=== PATIENT | female | born 1950 | race Caucasian/White ===

== ENCOUNTER 2017-05-25 12:57 | Emergency (ER) | payer OTHER ==
[2017-05-25] MEDS: ONDANSETRON 4 MG INJ IV (13:31)
[2017-05-25 13:45] LABS: ADD MAN DIFF? NO
[2017-05-25 13:50] LABS: WHITE BLOOD COUNT 7.7 10^3/ul (4.8-10.8)
[2017-05-25 13:50] LABS: BASOPHILS % 0.3 % (0.0-2.0); EOSINOPHILS # 0.1 10^3/ul (0.0-0.5); EOSINOPHILS % 1.7 % (0.0-7.0); HEMATOCRIT 35.4 % (37.0-47.0); HEMOGLOBIN 11.4 g/dl (12.0-16.0); LYMPHOCYTES # 1.5 10^3/ul (0.8-2.9); LYMPHOCYTES % 18.9 % (15.0-51.0); MEAN CORPUSCULAR HEMOGLOBIN 30.2 pg (29.0-33.0); MEAN CORPUSCULAR HGB CONC 32.2 g/dl (32.0-37.0); MEAN CORPUSCULAR VOLUME 93.9 fl (82.0-101.0); MEAN PLATELET VOLUME 11.4 fl (7.4-10.4); MONOCYTE # 0.3 10^3/ul (0.3-0.9); MONOCYTES % 3.9 % (0.0-11.0); NEUTROPHIL # 5.8 10^3/ul (1.6-7.5); NEUTROPHILS % 74.9 % (39.0-77.0); PLATELET COUNT 163 10^3/UL (140-415); RED BLOOD COUNT 3.77 10^6/ul (4.20-5.40); RED CELL DISTRIBUTION WIDTH 13.9 % (11.5-14.5)
[2017-05-25] MEDS: morphine 4 MG/ML VIAL IV (13:59)
[2017-05-25 14:06] LABS: INR 0.96; PROTIME 12.9 Sec (11.9-14.9)
[2017-05-25 14:07] LABS: PARTIAL THROMBOPLASTIN TIME 29.9 Sec (25.0-35.0)
[2017-05-25 14:10] LABS: ALANINE AMINOTRANSFERASE 37 IU/L (13-69); ALBUMIN 4.3 g/dl (3.3-4.9); ALBUMIN/GLOBULIN RATIO 1.07; ALKALINE PHOSPHATASE 94 IU/L (42-121); ANION GAP 15 (8-16); ASPARTATE AMINO TRANSFERASE 25 IU/L (15-46); BILIRUBIN,INDIRECT 0.3 mg/dl (0-1.1); BILIRUBIN,TOTAL 0.3 mg/dl (0.2-1.3); BLOOD UREA NITROGEN 25 mg/dl (7-20); CALCIUM 9.1 mg/dl (8.4-10.2); CARBON DIOXIDE 24 mmol/L (21-31); CHLORIDE 112 mmol/L (97-110); CREATININE 1.08 mg/dl (0.44-1.00); GLUCOSE 136 mg/dl (70-220); POTASSIUM 4.5 mmol/L (3.5-5.1); SODIUM 146 mmol/L (135-144); TOTAL PROTEIN 8.3 g/dl (6.1-8.1)
[2017-05-25 14:10] LABS: LACTIC ACID 0.8 mmol/L (0.5-2.0)
[2017-05-25 14:23] LABS: TROPONIN-I < 0.012 ng/ml (0.00-0.12)
[2017-05-25 15:41] LABS: LACTIC ACID 1.1 mmol/L (0.5-2.0)
== END 2017-05-25 15:59 | disposition home or self-care (01) ==
LOC: E/R 12:57
DX: R55 Syncope and collapse (principal); E11.649 Type 2 diabetes mellitus with hypoglycemia without coma; I10 Essential (primary) hypertension; Z79.4 Long term (current) use of insulin
CPT/HCPCS: 36415; 71045; 73550; 80053; 82962; 83605; 84484; 85025; 85610; 85730; 87040; 93005; 96374; 96375; 99285-25

== ENCOUNTER 2017-05-26 19:32 | Inpatient (IN) | payer OTHER ==
[2017-05-26 20:32] LABS: ADD MAN DIFF? NO
[2017-05-26 20:34] LABS: BASOPHILS % 0.3 % (0.0-2.0); EOSINOPHILS # 0.4 10^3/ul (0.0-0.5); HEMATOCRIT 30.1 % (37.0-47.0); HEMOGLOBIN 9.7 g/dl (12.0-16.0); LYMPHOCYTES # 2.5 10^3/ul (0.8-2.9); LYMPHOCYTES % 31.3 % (15.0-51.0); MEAN CORPUSCULAR HEMOGLOBIN 30.4 pg (29.0-33.0); MEAN CORPUSCULAR HGB CONC 32.2 g/dl (32.0-37.0); MEAN CORPUSCULAR VOLUME 94.4 fl (82.0-101.0); MEAN PLATELET VOLUME 11.4 fl (7.4-10.4); MONOCYTE # 0.5 10^3/ul (0.3-0.9); NEUTROPHIL # 4.5 10^3/ul (1.6-7.5); PLATELET COUNT 145 10^3/UL (140-415); RED BLOOD COUNT 3.19 10^6/ul (4.20-5.40); RED CELL DISTRIBUTION WIDTH 13.8 % (11.5-14.5)
[2017-05-26 20:34] LABS: WHITE BLOOD COUNT 7.8 10^3/ul (4.8-10.8)
[2017-05-26] MEDS: PIPER-TAZO 3.375 GM IV (PMX) 100 ML IVPB (20:36)
[2017-05-26] MEDS: SOD CHLORIDE 0.9% 1,000 ML IV ×2 (20:36→23:17)
[2017-05-26 20:53] LABS: ALANINE AMINOTRANSFERASE 31 IU/L (13-69); ALBUMIN 3.7 g/dl (3.3-4.9); ALBUMIN/GLOBULIN RATIO 1.08; ALKALINE PHOSPHATASE 89 IU/L (42-121); ANION GAP 13 (8-16); ASPARTATE AMINO TRANSFERASE 20 IU/L (15-46); BILIRUBIN,INDIRECT 0.1 mg/dl (0-1.1); BILIRUBIN,TOTAL 0.1 mg/dl (0.2-1.3); BLOOD UREA NITROGEN 37 mg/dl (7-20); CALCIUM 8.4 mg/dl (8.4-10.2); CARBON DIOXIDE 23 mmol/L (21-31); CHLORIDE 112 mmol/L (97-110); CREATININE 1.78 mg/dl (0.44-1.00); GLUCOSE 191 mg/dl (70-220); SODIUM 143 mmol/L (135-144); TOTAL PROTEIN 7.1 g/dl (6.1-8.1)
[2017-05-26 21:04] LABS: POTASSIUM 5.2 mmol/L (3.5-5.1)
[2017-05-26 21:10] LABS: INR 1.04; PROTIME 13.7 Sec (11.9-14.9); PT RATIO 1.1
[2017-05-26] MEDS: VANCOMYCIN 1.25 GM in SOD CHLORIDE 0.9% 250 ML IVPB (21:10)
[2017-05-26 21:11] LABS: PARTIAL THROMBOPLASTIN TIME 27.1 Sec (25.0-35.0)
[2017-05-26 21:12] LABS: LACTIC ACID 1.1 mmol/L (0.5-2.0)
[2017-05-26 21:27] LABS: TROPONIN-I < 0.012 ng/ml (0.00-0.12)
[2017-05-26] MEDS: morphine 4 MG/ML VIAL IV (21:36)
[2017-05-26] MEDS: KETOROLAC 30 MG INJ IV (21:37)
[2017-05-26] MEDS: METHOCARBAMOL 750 MG TAB PO (22:13)
[2017-05-26] MEDS ORDERED: ONDANSETRON 4 MG INJ IV (23:00)
[2017-05-26] MEDS ORDERED: NACL 0.9% 3 ML SYG IV (23:00)
[2017-05-26] MEDS ORDERED: morphine 2 MG INJ IV (23:30)
[2017-05-26] MEDS ORDERED: GLUCOSE GEL 15 GRAM TUBE BUCCAL (23:30)
[2017-05-26] MEDS ORDERED: GLUCOSE GEL 15 GRAM TUBE PO ×2 (23:30)
[2017-05-26] MEDS ORDERED: DEXTROSE 50% 50 ML SYRINGE IV ×2 (23:30)
[2017-05-26] MEDS ORDERED: MECLIZINE 25 MG TAB PO (23:30)
[2017-05-26] MEDS ORDERED: GLUCAGON 1 MG INJ IM (23:30)
[2017-05-27] MEDS ORDERED: VANCOMYCIN IV PER PHARMACY XX
[2017-05-27] MEDS: SOD CHLORIDE 0.9% 1,000 ML IV ×2 (01:09→05:21)
[2017-05-27] MEDS: ACCU-CHEK XX (01:16)
[2017-05-27] MEDS: INSULIN ASPART [NOVOLOG] 3 ML PEN SC ×8 (01:16→22:14)
[2017-05-27] MEDS: PANTOPRAZOLE (EC) 40 MG TAB PO (05:21)
[2017-05-27] MEDS: HEPARIN 5,000 UNIT/0.5 ML VIAL SC ×3 (05:32→22:16)
[2017-05-27 06:10] LABS: ADD MAN DIFF? NO
[2017-05-27 06:18] LABS: BASOPHILS % 0.2 % (0.0-2.0); EOSINOPHILS # 0.3 10^3/ul (0.0-0.5); EOSINOPHILS % 5.7 % (0.0-7.0); HEMATOCRIT 25.5 % (37.0-47.0); HEMOGLOBIN 8.1 g/dl (12.0-16.0); LYMPHOCYTES # 2.7 10^3/ul (0.8-2.9); LYMPHOCYTES % 44.6 % (15.0-51.0); MEAN CORPUSCULAR HEMOGLOBIN 30.6 pg (29.0-33.0); MEAN CORPUSCULAR HGB CONC 31.8 g/dl (32.0-37.0); MEAN CORPUSCULAR VOLUME 96.2 fl (82.0-101.0); MONOCYTE # 0.4 10^3/ul (0.3-0.9); MONOCYTES % 6.5 % (0.0-11.0); NEUTROPHIL # 2.6 10^3/ul (1.6-7.5); NEUTROPHILS % 42.7 % (39.0-77.0); PLATELET COUNT 115 10^3/UL (140-415); RED BLOOD COUNT 2.65 10^6/ul (4.20-5.40); RED CELL DISTRIBUTION WIDTH 13.8 % (11.5-14.5)
[2017-05-27 06:45] LABS: ANION GAP 12 (8-16); BLOOD UREA NITROGEN 35 mg/dl (7-20); CALCIUM 7.5 mg/dl (8.4-10.2); CARBON DIOXIDE 22 mmol/L (21-31); CHLORIDE 116 mmol/L (97-110); CREATININE 1.52 mg/dl (0.44-1.00); GLUCOSE 143 mg/dl (70-220); SODIUM 145 mmol/L (135-144)
[2017-05-27] MEDS: FERROUS SULFATE (EC) 325 MG TAB PO (09:00)
[2017-05-27] MEDS: CLOPIDOGREL 75 MG TAB PO (09:00)
[2017-05-27] MEDS: NIFEdipine (XL) 30 MG TAB PO (09:00)
[2017-05-27] MEDS ORDERED: PREGABALIN 75 MG CAP PO (09:00)
[2017-05-27] MEDS: LACTATED RINGER'S 1,000 ML IV ×2 (10:43→19:30)
[2017-05-27 17:49] LABS: ADD UMIC NO; UR ASCORBIC ACID NEGATIVE (NEGATIVE); UR BILIRUBIN (Dip) NEGATIVE (NEGATIVE); UR BLOOD (Dip) NEGATIVE (NEGATIVE); UR CLARITY CLEAR (CLEAR); UR COLOR STRAW (YELLOW); UR GLUCOSE (Dip) 1+ mg/dL (NEGATIVE); UR KETONES (Dip) NEGATIVE (NEGATIVE); UR LEUKOCYTE ESTERASE (Dip) NEGATIVE Leu/ul (NEGATIVE); UR NITRITE (Dip) NEGATIVE (NEGATIVE); UR SPECIFIC GRAVITY (Dip) 1.008 (1.003-1.030); UR TOTAL PROTEIN (Dip) NEGATIVE (NEGATIVE); UR UROBILINOGEN (Dip) NEGATIVE (NEGATIVE)
[2017-05-27] MEDS: ACETAMINOPHEN 325 MG TAB PO (17:58)
[2017-05-27] MEDS: VANCOMYCIN 1.5 GM in SOD CHLORIDE 0.9% 250 ML IVPB (20:55)
[2017-05-27] MEDS: ATORVASTATIN 40 MG TAB PO (20:55)
[2017-05-27] MEDS: FAMOTIDINE 20 MG TAB GTB (20:56)
[2017-05-27] MEDS ORDERED: VANCOMYCIN 1.75 GM in SOD CHLORIDE 0.9% 500 ML IVPB (21:00)
[2017-05-27] MEDS ORDERED: INSULIN GLARGINE [LANtus] 3 ML PEN SC (21:00)
[2017-05-27] MEDS: INSULIN GLARGINE [LANtus] 3 ML PEN SC (22:15)
[2017-05-28] MEDS: ACCU-CHEK XX (02:00)
[2017-05-28] MEDS: LACTATED RINGER'S 1,000 ML IV (02:19)
[2017-05-28] MEDS: HEPARIN 5,000 UNIT/0.5 ML VIAL SC (06:15)
[2017-05-28 06:48] LABS: ANION GAP 13 (8-16); BLOOD UREA NITROGEN 24 mg/dl (7-20); CALCIUM 7.9 mg/dl (8.4-10.2); CARBON DIOXIDE 22 mmol/L (21-31); CHLORIDE 116 mmol/L (97-110); CREATININE 1.01 mg/dl (0.44-1.00); GLUCOSE 152 mg/dl (70-220); POTASSIUM 4.7 mmol/L (3.5-5.1); SODIUM 146 mmol/L (135-144)
[2017-05-28] MEDS: INSULIN ASPART [NOVOLOG] 3 ML PEN SC ×4 (07:45→11:47)
[2017-05-28] MEDS: NIFEdipine (XL) 30 MG TAB PO (08:43)
[2017-05-28] MEDS: CLOPIDOGREL 75 MG TAB PO (08:43)
[2017-05-28] MEDS: FERROUS SULFATE (EC) 325 MG TAB PO (08:44)
[2017-05-28] MEDS: LEVOFLOXACIN 500 MG TAB GTB (11:39)
== END 2017-05-28 12:45 | disposition home or self-care (01) | DRG 872 ==
LOC: PP2 23:02 → E/R 19:32
DX: R78.81 Bacteremia (principal); N17.9 Acute kidney failure, unspecified; Z68.41 Body mass index [BMI] 40.0-44.9, adult; E11.22 Type 2 diabetes mellitus with diabetic chronic kidney disease; N18.9 Chronic kidney disease, unspecified; E78.5 Hyperlipidemia, unspecified; Z86.73 Personal history of transient ischemic attack (TIA), and cerebral infarction without residual deficits; Z79.02 Long term (current) use of antithrombotics/antiplatelets; E66.01 Morbid (severe) obesity due to excess calories; I12.9 Hypertensive chronic kidney disease with stage 1 through stage 4 chronic kidney disease, or unspecified chronic kidney disease; D64.89 Other specified anemias; Z87.891 Personal history of nicotine dependence; E11.649 Type 2 diabetes mellitus with hypoglycemia without coma
CPT/HCPCS: 36415; 71045; 80048; 80053; 81003; 82962; 83605; 84484; 85025; 85610; 85730; 87040; 87086; 93306; 96365; 96375; 97161; 99285-25; G0378

== ENCOUNTER 2017-06-13 12:29 | Emergency (ER) | payer OTHER ==
[2017-06-13] MEDS: ONDANSETRON (ODT) 4 MG TAB ODT (14:35)
[2017-06-13] MEDS: HYDROCODONE/APAP (5/325) TAB PO (14:35)
== END 2017-06-13 14:35 | disposition home or self-care (01) ==
LOC: E/R 12:29 → FTE 14:35
DX: M25.561 Pain in right knee (principal); I10 Essential (primary) hypertension; F17.210 Nicotine dependence, cigarettes, uncomplicated; E11.9 Type 2 diabetes mellitus without complications; Z79.4 Long term (current) use of insulin; Z79.01 Long term (current) use of anticoagulants
CPT/HCPCS: 73510; 73562; 99284-25